=== PATIENT | male | born 1970 | race Caucasian/White ===

== ENCOUNTER 2017-03-10 07:33 | Emergency (ER) | payer OTHER ==
[~2017-03-10] VITALS: Wt 81.6 kg
[~2017-03-10 07:33] MED LIST: ASPIRIN81 M1 PO; BACTRIM DS 8001 TA1 PO; KEFLEX500 MG PO; LEVOFLOXACIN500 MG PO; PLAVIX75 M1 PO; VICODIN 5/500 505 MG PO; VICODIN ES 7501 TAB PO; VOLTAREN50 M1 PO
[2017-03-10 08:00] LABS: BASO # 0.1 10*3/uL (0.0-0.1); BASO % 0.6 % (0.0-1.0); EOS # 0.5 10*3/uL (0.0-0.4); EOS % 4.3 % (1.0-4.0); HEMATOCRIT 53.4 % (42.0-52.0); HEMOGLOBIN 17.7 g/dl (14.0-18.0); LYMPH # 3.1 10*3/uL (1.3-4.4); LYMPH % 24.8 % (27.0-41.0); MEAN CELL VOLUME 95.2 fl (80.0-94.0); MEAN CORPUSCULAR HGB 31.6 pg (27.0-31.0); MEAN CORPUSCULAR HGB CONC 33.1 g/dl (33.0-37.0); MEAN PLATELET VOLUME 9.6 fl (9.6-12.3); MONO # 0.9 10*3/uL (0.1-1.0); MONO % 7.2 % (3.0-9.0); NEUT # 7.8 10*3/uL (2.3-7.9); NEUT % 62.8 % (47.0-73.0); PLATELET COUNT AUTOMATED 309 10*3/uL (130-400); RED BLOOD COUNT 5.61 10*6/uL (4.50-5.90); RED CELL DISTRI WIDTH 14.5 % (0-14.5); WHITE BLOOD COUNT 12.4 10*3/uL (4.8-10.8)
[2017-03-10 08:09] LABS: ACT PARTIAL THROMBO TIME 23.2 SECONDS (20.8-31.5)
[2017-03-10 08:15] LABS: ALBUMIN 3.2 gm/dl (3.1-4.5); ALKALINE PHOSPHATASE 90 U/L (45-117); BUN 10 mg/dl (7-24); CHLORIDE 101 mmol/L (98-107); CKMB 2.3 ng/ml (0.5-3.6); CPK 276 U/L (39-308); CREATININE 1.45 mg/dL (0.70-1.30); LIPASE 164 U/L (73-393); MAGNESIUM 2.5 mg/dL (1.5-2.1); POTASSIUM 3.7 mmol/L (3.5-5.1); SGOT/AST 32 IU/L (3-35); SGPT/ALT 20 U/L (12-78); SODIUM 137 mmol/L (136-145); TOTAL PROTEIN 7.1 gm/dL (6.4-8.2)
[2017-03-10 08:21] LABS: ACETAMINOPHEN (TYLENOL) < 2.0 ug/ml (10-30); ETHYL ALCOHOL < 3.0 mg/dl (<3); TROPONIN I < 0.015 ng/ml (<0.045)
[2017-03-10 08:48] LABS: BILIRUBIN NEGATIVE (NEGATIVE); BLOOD NEGATIVE (NEGATIVE); CLARITY CLEAR (CLEAR); COLOR YELLOW (YELLOW); GLUCOSE TRACE (NEGATIVE); KETONE NEGATIVE (NEGATIVE); LEUKO ESTERASE NEGATIVE (NEGATIVE); NITRITE NEGATIVE (NEGATIVE); PH 5.5 (5.0-9.0); UROBILINOGEN 0.2 E.U./dl (0.2-1.0)
[2017-03-10 08:56] LABS: MUCOUS TRACE; WBC 0-2 wbc/hpf (0-5)
[2017-03-10 08:59] LABS: URINE AMPHETAMINES < 1000 (1000ng/ml); URINE BARBITURATES < 200 (200ng/ml); URINE BENZODIAZEPINES < 200 (200ng/ml); URINE CANNABINOIDS (THC) < 50 (50ng/ml); URINE COCAINE < 300 (300ng/ml); URINE METHADONE < 300 (300ng/ml); URINE OPIATES < 300 (300ng/ml)
[2017-03-10 09:00] LABS: URINE PHENCYCLIDINE < 25 (25ng/ml)
== END 2017-03-10 14:21 | disposition short-term general hospital (02) ==
LOC: ED 07:33
PROVIDERS: Emergency Medicine
DX: Z77.098 Contact with and (suspected) exposure to other hazardous, chiefly nonmedicinal, chemicals (principal); R56.9 Unspecified convulsions; R41.0 Disorientation, unspecified; Z79.82 Long term (current) use of aspirin

== ENCOUNTER 2017-03-21 16:10 | Emergency (ER) | payer OTHER ==
[~2017-03-21] VITALS: Ht 182.8 cm; Wt 87.1 kg
[2017-03-21] MEDS ORDERED: SEPTDS PO (17:51)
[2017-03-21] MEDS ORDERED: TRAMADOL HCL50 MG PO (18:44)
== END 2017-03-21 22:04 | disposition home or self-care (01) ==
LOC: ED 16:10
DX: L02.413 Cutaneous abscess of right upper limb (principal); Z79.899 Other long term (current) drug therapy

== ENCOUNTER → 2017-03-25 | Outpatient (CLI) | payer OTHER ==
[~2017-03-25] MED LIST changes: +SEPTDS PO; +TRAMADOL HCL50 MG PO
== END | disposition home or self-care (01) ==
LOC: WOUNDCARE 01:09
DX: S51.001A Unspecified open wound of right elbow, initial encounter (principal); L02.413 Cutaneous abscess of right upper limb; F17.210 Nicotine dependence, cigarettes, uncomplicated; Z72.89 Other problems related to lifestyle; X58.XXXA Exposure to other specified factors, initial encounter; Y93.89 Activity, other specified; Y92.89 Other specified places as the place of occurrence of the external cause; Y99.8 Other external cause status

== ENCOUNTER 2017-07-01 22:27 | Emergency (ER) | payer SELFPAY ==
[~2017-07-01] VITALS: Ht 182.8 cm; Wt 86.2 kg
[2017-07-01] MEDS ORDERED: MOBIC7.5 MG PO (23:05)
[2017-07-01] MEDS ORDERED: BACTRIM 400-801 EACH PO (23:05)
== END 2017-07-01 23:40 | disposition home or self-care (01) ==
LOC: ED 22:27
DX: L03.011 Cellulitis of right finger (principal); F17.200 Nicotine dependence, unspecified, uncomplicated; Z79.899 Other long term (current) drug therapy

== ENCOUNTER 2017-12-12 15:41 | Emergency (ER) | payer SELFPAY ==
[~2017-12-12] VITALS: Wt 83.9 kg
[~2017-12-12 15:41] MED LIST changes: +BACTRIM 400-801 EACH PO; +MOBIC7.5 MG PO
[2017-12-12 16:35] LABS: BILIRUBIN NEGATIVE (NEGATIVE); BLOOD NEGATIVE (NEGATIVE); CLARITY CLEAR (CLEAR); COLOR YELLOW (YELLOW); GLUCOSE NEGATIVE (NEGATIVE); KETONE NEGATIVE (NEGATIVE); LEUKO ESTERASE NEGATIVE (NEGATIVE); NITRITE NEGATIVE (NEGATIVE); SPECIFIC GRAVITY 1.025 (1.005-1.030); UROBILINOGEN 0.2 E.U./dl (0.2-1.0)
[2017-12-12 16:36] LABS: MUCOUS TRACE; WBC 0-2 wbc/hpf (0-5)
== END 2017-12-12 16:22 | disposition home or self-care (01) ==
LOC: ED 15:41
PROVIDERS: Nurse Practitioner Family
DX: R30.0 Dysuria (principal); R36.9 Urethral discharge, unspecified; R03.0 Elevated blood-pressure reading, without diagnosis of hypertension

== ENCOUNTER 2017-12-19 23:34 | Emergency (ER) | payer SELFPAY ==
[~2017-12-19] VITALS: Ht 182.8 cm; Wt 83.9 kg
== END 2017-12-20 02:25 | disposition short-term general hospital (02) ==
LOC: ED 23:34
DX: T23.292A Burn of second degree of multiple sites of left wrist and hand, initial encounter (principal); T23.232A Burn of second degree of multiple left fingers (nail), not including thumb, initial encounter; Z88.6 Allergy status to analgesic agent; X08.8XXA Exposure to other specified smoke, fire and flames, initial encounter; Y93.89 Activity, other specified; Y92.89 Other specified places as the place of occurrence of the external cause; Y99.9 Unspecified external cause status

== ENCOUNTER → 2020-02-07 | Outpatient (CLI) | payer OTHER ==
[2020-02-07 12:26] LABS: HEMATOCRIT 49.1 % (42.0-52.0); MEAN CORPUSCULAR HGB 31.6 pg (27.0-31.0); MEAN CORPUSCULAR HGB CONC 32.6 g/dl (33.0-37.0); MEAN PLATELET VOLUME 10.5 fl (9.6-12.3); RED BLOOD COUNT 5.06 10*6/uL (4.50-5.90); RED CELL DISTRI WIDTH 13.5 % (0-14.5); WHITE BLOOD COUNT 6.7 10*3/uL (4.8-10.8)
[2020-02-07 12:46] LABS: ALBUMIN 3.5 gm/dl (3.1-4.5); BUN 11 mg/dl (7-24); CHLORIDE 109 mmol/L (98-107); POTASSIUM 3.9 mmol/L (3.5-5.1); SGPT/ALT 18 U/L (12-78); SODIUM 138 mmol/L (136-145)
[2020-02-07 12:51] LABS: ALKALINE PHOSPHATASE 95 U/L (45-117); CHOLESTEROL 143 mg/dL (<200); HDL CHOLESTEROL 43 mg/dl (40-60); LDL CHOLESTEROL 87 mg/dL (9-159); SGOT/AST 21 IU/L (3-35); TOTAL PROTEIN 6.6 gm/dL (6.4-8.2); TRIGLYCERIDES 65 mg/dl (<150); VLDL CHOLESTEROL 13 mg/dL (6-40)
== END | disposition home or self-care (01) ==
LOC: LAB 11:24
PROVIDERS: Registered Nurse Flight
DX: Z00.00 Encounter for general adult medical examination without abnormal findings (principal); Z13.220 Encounter for screening for lipoid disorders; N52.9 Male erectile dysfunction, unspecified; Z72.0 Tobacco use

== ENCOUNTER → 2021-03-31 | Outpatient (CLI) | payer OTHER ==
[2021-03-31 09:37] LABS: BASO # 0.1 10*3/uL (0.0-0.1); BASO % 0.6 % (0.0-1.0); EOS # 0.3 10*3/uL (0.0-0.4); EOS % 3.2 % (1.0-4.0); LYMPH # 2.5 10*3/uL (1.3-4.4); MEAN CELL VOLUME 95.2 fl (80.0-94.0); MEAN CORPUSCULAR HGB 31.3 pg (27.0-31.0); MEAN CORPUSCULAR HGB CONC 32.9 g/dl (33.0-37.0); MEAN PLATELET VOLUME 9.8 fl (9.6-12.3); MONO # 0.6 10*3/uL (0.1-1.0); MONO % 7.7 % (3.0-9.0); NEUT # 4.7 10*3/uL (2.3-7.9); NEUT % 57.3 % (47.0-73.0); PLATELET COUNT AUTOMATED 236 10*3/uL (130-400); RED BLOOD COUNT 5.04 10*6/uL (4.50-5.90); RED CELL DISTRI WIDTH 13.5 % (0-14.5); WHITE BLOOD COUNT 8.1 10*3/uL (4.8-10.8)
[2021-03-31 09:54] LABS: ALBUMIN 3.6 gm/dl (3.1-4.5); BUN 12 mg/dl (7-24); CHLORIDE 110 mmol/L (98-107); CHOLESTEROL 181 mg/dL (<200); POTASSIUM 4.7 mmol/L (3.5-5.1); SGOT/AST 28 IU/L (3-35); SGPT/ALT 22 U/L (12-78); SODIUM 141 mmol/L (136-145); TRIGLYCERIDES 110 mg/dl (<150)
[2021-03-31 10:01] LABS: ALKALINE PHOSPHATASE 98 U/L (45-117); FREE T4 0.78 ng/dl (0.76-1.46); LDL CHOLESTEROL 118 mg/dL (9-159)
[2021-03-31 11:27] LABS: VITAMIN D, 25-HYDROXY 42.7 ng/mL (30-100)
== END | disposition home or self-care (01) ==
LOC: LAB 09:05
PROVIDERS: ATTEND Internal Medicine
DX: Z00.00 Encounter for general adult medical examination without abnormal findings (principal); Z13.1 Encounter for screening for diabetes mellitus; Z13.21 Encounter for screening for nutritional disorder; Z13.220 Encounter for screening for lipoid disorders; Z12.5 Encounter for screening for malignant neoplasm of prostate; E55.9 Vitamin D deficiency, unspecified; R06.02 Shortness of breath

== ENCOUNTER → 2021-04-25 | Outpatient (CLI) | payer OTHER | END | disposition home or self-care (01) | LOC: US 04-11 07:30 → CARD 04-11 08:30 → US 07:10 | PROVIDERS: ATTEND Internal Medicine | DX: I65.23 Occlusion and stenosis of bilateral carotid arteries (principal); R06.02 Shortness of breath; R55 Syncope and collapse ==

== ENCOUNTER → 2021-05-11 | Outpatient (CLI) | payer OTHER | END | disposition home or self-care (01) | LOC: MRI 10:00 | PROVIDERS: ATTEND Internal Medicine | DX: G47.419 Narcolepsy without cataplexy (principal); R53.1 Weakness; R55 Syncope and collapse ==

== ENCOUNTER → 2021-06-28 | Outpatient (CLI) | payer OTHER | LOC: US 09:00 | PROVIDERS: ATTEND Internal Medicine | DX: K76.0 Fatty (change of) liver, not elsewhere classified (principal); K80.20 Calculus of gallbladder without cholecystitis without obstruction ==

== ENCOUNTER 2022-10-10 17:53 | Emergency (ER) | payer OTHER | END 2022-10-10 18:10 | disposition left against medical advice (07) | LOC: ED 17:53 | DX: M79.601 Pain in right arm (principal); Z53.21 Procedure and treatment not carried out due to patient leaving prior to being seen by health care provider ==

== ENCOUNTER → 2022-12-09 | Outpatient (CLI) | payer OTHER ==
[2022-12-09 15:05] LABS: BASO # 0.1 10*3/uL (0.0-0.1); BASO % 0.6 % (0.0-1.0); EOS # 0.3 10*3/uL (0.0-0.4); EOS % 3.1 % (1.0-4.0); HEMATOCRIT 48.6 % (42.0-52.0); LYMPH # 4.1 10*3/uL (1.3-4.4); LYMPH % 44.5 % (27.0-41.0); MEAN CELL VOLUME 95.7 fl (80.0-94.0); MEAN CORPUSCULAR HGB 31.9 pg (27.0-31.0); MEAN CORPUSCULAR HGB CONC 33.3 g/dl (33.0-37.0); MEAN PLATELET VOLUME 9.8 fl (9.6-12.3); MONO # 0.5 10*3/uL (0.1-1.0); MONO % 5.1 % (3.0-9.0); NEUT # 4.3 10*3/uL (2.3-7.9); NEUT % 46.6 % (47.0-73.0); PLATELET COUNT AUTOMATED 209 10*3/uL (130-400); RED BLOOD COUNT 5.08 10*6/uL (4.50-5.90); WHITE BLOOD COUNT 9.3 10*3/uL (4.8-10.8)
[2022-12-09 15:41] LABS: VITAMIN D, 25-HYDROXY 40.9 ng/mL (30-100)
[2022-12-09 15:48] LABS: ALKALINE PHOSPHATASE 97 U/L (46-116); BUN 7 mg/dl (9-23); CHLORIDE 107 mmol/L (98-107); CHOLESTEROL 177 mg/dL (<200); FREE T4 0.98 ng/dl (0.89-1.76); LDL CHOLESTEROL 103 mg/dL (9-159); POTASSIUM 4.3 mmol/L (3.4-5.1); SGPT/ALT 11 U/L (10-49); THYROID STIM HORMONE (HS) 2.115 uIU/ml (0.550-4.780); TRIGLYCERIDES 179 mg/dl (<150)
== END | disposition home or self-care (01) ==
LOC: LAB 14:36
PROVIDERS: ATTEND Internal Medicine
DX: J45.20 Mild intermittent asthma, uncomplicated (principal); F31.9 Bipolar disorder, unspecified; F41.1 Generalized anxiety disorder; M25.522 Pain in left elbow

== ENCOUNTER 2022-12-18 21:28 | Emergency (ER) | payer OTHER ==
[~2022-12-18] VITALS: Ht 182.8 cm; Wt 86.2 kg
[2022-12-19] MEDS ORDERED: CLEOCIN HCL300 MG PO (12:28)
== END 2022-12-18 22:55 | disposition home or self-care (01) ==
LOC: ED 21:28
DX: S92.515A Nondisplaced fracture of proximal phalanx of left lesser toe(s), initial encounter for closed fracture (principal); S91.115A Laceration without foreign body of left lesser toe(s) without damage to nail, initial encounter; Z88.8 Allergy status to other drugs, medicaments and biological substances; Z91.041 Radiographic dye allergy status; Z98.890 Other specified postprocedural states; W26.8XXA Contact with other sharp object(s), not elsewhere classified, initial encounter; Y93.89 Activity, other specified; Y92.009 Unspecified place in unspecified non-institutional (private) residence as the place of occurrence of the external cause; Y99.8 Other external cause status

== ENCOUNTER 2024-04-15 18:14 | Emergency (ER) | payer OTHER ==
[~2024-04-15] VITALS: Wt 83.9 kg
[~2024-04-15 18:14] MED LIST changes: +CLEOCIN HCL300 MG PO
[2024-04-15] MEDS ORDERED: CYMBALTA30 MG PO (18:26)
[2024-04-15 18:48] LABS: HEMATOCRIT 47.5 % (42.0-52.0); MEAN CELL VOLUME 91.7 fl (80.0-94.0); MEAN CORPUSCULAR HGB 31.1 pg (27.0-31.0); MEAN CORPUSCULAR HGB CONC 33.9 g/dl (33.0-37.0); MEAN PLATELET VOLUME 9.3 fl (9.6-12.3); PLATELET COUNT AUTOMATED 239 10*3/uL (130-400); RED BLOOD COUNT 5.18 10*6/uL (4.50-5.90); RED CELL DISTRI WIDTH 13.4 % (0-14.5); WHITE BLOOD COUNT 11.5 10*3/uL (4.8-10.8)
[2024-04-15 18:57] LABS: MANUAL DIFF REFLEX YES
[2024-04-15 19:07] LABS: ACT PARTIAL THROMBO TIME 27.7 SECONDS (20.0-32.1)
[2024-04-15 19:09] LABS: ALKALINE PHOSPHATASE 103 U/L (46-116); BUN 11 mg/dl (9-23); CHLORIDE 107 mmol/L (98-107); POTASSIUM 3.8 mmol/L (3.4-5.1); SGPT/ALT 8 U/L (5-49); TOTAL PROTEIN 6.8 gm/dL (6.0-8.0)
[2024-04-15 19:10] LABS: ATYPICAL LYMPHS 1 % (0-0); PLATELET SUFFICIENCY NORMAL (NORMAL); TOTAL CELLS COUNTED 100 #CELLS
[2024-04-15 19:11] LABS: BURR CELLS FEW
== END 2024-04-15 21:07 | disposition home or self-care (01) ==
LOC: ED 18:14
PROVIDERS: Internal Medicine
DX: R07.89 Other chest pain (principal); M25.512 Pain in left shoulder; M79.602 Pain in left arm; F17.200 Nicotine dependence, unspecified, uncomplicated; Z91.041 Radiographic dye allergy status; Z88.8 Allergy status to other drugs, medicaments and biological substances; Z98.890 Other specified postprocedural states